=== PATIENT | male | born 1960 | race Caucasian/White ===

== ENCOUNTER 2024-07-18 22:07 | Emergency (ER) | payer OTHER, SELFPAY ==
[2024-07-18 22:10] VITALS: BP 154/110
[2024-07-18 22:38] VITALS: BMI 27.5
[2024-07-18 22:51] LABS: % Basophils 0.3 % (0-2); % Immature Granulocytes 0.3 % (0-0.5); % Lymphocytes 8.4 % (20.5-51.1); % Monocytes 4.5 % (1.7-9.3); % Neutrophils 85.5 % (42.2-75.2); Absolute Eosinophils 0.1 10^3/uL (0-0.7); Absolute Lymphocytes 0.7 10^3/uL (1.2-3.4); Absolute Monocytes 0.4 10^3/uL (0.1-0.6); Absolute Neutrophils 6.6 10^3/uL (1.4-6.5); Hematocrit 44.3 % (39.0-52.0); Hemoglobin 15.8 g/dL (13.0-18.0); Mean Corp Hgb Conc. 35.7 g/dL (33.0-37.0); Mean Corpuscular Hgb 32.6 pg (27.0-31.0); Mean Corpuscular Volume 91.3 fL (80.0-94.0); Mean Platelet Volume 9.2 fL (7.4-10.4); Nucleated Red Blood Cells % 0 % (-); Platelet Count 192 10^3/uL (130-400); Red Blood Cell Count 4.85 10^6/uL (4.70-6.10); Red Cell Dist. Width 12.7 % (11.5-14.5); White Blood Cell Count 7.8 10^3/uL (4.8-10.8)
[2024-07-18 22:53] VITALS: BP 143/99
[2024-07-18 23:07] LABS: Lactic Acid 1.1 mmol/L (0.7-2.0)
[2024-07-18 23:09] LABS: ALT (SGPT) 30 U/L (0-50); AST (SGOT) 30 U/L (17-59); Albumin 4.6 g/dl (3.5-5.0); Alkaline Phosphatase 99 U/L (38-126); Blood Urea Nitrogen 27 mg/dl (9-20); Carbon Dioxide 28 mmol/L (22-30); Chloride 104 mmol/L (98-107); Estimated Creatinine Clearance 82 ml/min; Glucose 121 mg/dl (70-99); Lipase 91 U/L (23-300); Potassium 3.9 mmol/L (3.5-5.1); Sodium 141 mmol/L (135-145); Total Bilirubin 1.2 mg/dl (0.2-1.3); Total Protein 7.1 g/dl (6.3-8.2); eGFR > 60.00
[2024-07-18 23:24] LABS: Troponin I < 0.012 ng/ml
--- NOTE | 2024-07-18 23:49 | ED.GENMED ---
History of Present Illness
General
Chief Complaint: Abdominal Pain
Source: patient
Exam Limitations: none
Time Seen by Provider: 07/18/24 23:31
Nursing documentation reviewed up to this point in time: agreed with
History of Present Illness
History of Present Illness:
This is a 64-year-old male with past medical history of hypertension, GERD, who presents emergency department today with concerns of epigastric abdominal pain and left upper abdominal pain starting this afternoon. Patient reports that when for
started, he thought nothing of it. He has had similar pain past which is gone away on its own. He also has had headaches with this as well as intermittent body aches and nausea. He denies any vomiting. He denies any fevers or chills. He states
that he took Advil for the pain which did not help much. He does not use NSAIDs daily. He denies any hemoptysis, dark tarry stools, rectal bleeding. He denies any coughing, shortness of breath, chest pain or respiratory symptoms. He denies any
radiation of the abdominal pain to the back. He has never had any intra-abdominal surgeries in the past. He called his primary care provider who advised him to report to emergency department to rule out any cardiac etiology to his symptoms.
Patient has no personal history of cardiac disease. He does take lisinopril daily for his blood pressure and states that he is concerned because his blood pressure was elevated today. He denies any headaches
Review of Systems
Review of Systems
All Other Systems: ROS reviewed and negative except as documented in HPI and ROS
Phy Exam
Physical Exam
Physical Exam:
General: Patient is well appearing and in no acute distress; non-toxic
Skin: Warm and dry, no rashes or lesions
Head: Normocephalic, atraumatic
Eyes: Sclera non-icteric. EOMs intact.
Cardiac: Regular rate and rhythm, no murmurs; no tenderness palpation of external chest wall
Peripheral Vascular: No lower extremity swelling or
Pulm: Normal respiratory effort, no wheezes, rales, rhonchi
Abdomen: Mild left upper quadrant abdominal tenderness palpation, no rebound tenderness or guarding. Normoactive bowel sounds
Neuro: CN II-XII intact, no focal neurologic deficits.
Psychiatric: Appropriate mood and affect.
Course
Orders/Labs/Results
Orders:
Orders
07/18/24 22:19
EKG [Electrocardiogram (*1)] Urgent
Reason for Study: Tachycardia
EKG- Treatment ONCE
07/18/24 22:28
EKG [Electrocardiogram (*1)] Urgent
Reason for Study: Tachycardia
EKG- Treatment ONCE
07/18/24 22:43
Complete Blood Count/With Diff Urgent
Comprehensive Metabolic Panel Urgent
Lactic Acid Urgent
Lipase Urgent
Troponin I Urgent
07/19/24
CT Abd/pelvis W Iv Cont Urgent
Reason For Exam: right sided abdominal pain
07/19/24 00:35
0.9% Sodium Chloride 1000 ml [Nss] 1,000 ml IV BOLUS
07/19/24 00:36
Ketorolac [Toradol] 15 mg IV NOW STA
07/19/24 01:16
Electrocardiogram (*1) Urgent
Reason for Study: Abdominal Pain
EKG- Treatment ONCE
07/19/24 01:42
COVID-19 Antigen Urgent
Source: Nasal Swab
Troponin I Urgent
Influenza A+B Rapid Molecular Urgent
TAWNY Source: Nasal Swab
Specimen Description:
Abnormal Lab Results
07/18/24
22:43
MCH 32.6 H pg
(27.0-31.0)
Absolute Neuts (auto) 6.6 H 10^3/uL
(1.4-6.5)
Absolute Lymphs (auto) 0.7 L 10^3/uL
(1.2-3.4)
Neutrophils % 85.5 H %
(42.2-75.2)
Lymphocytes % 8.4 L %
(20.5-51.1)
BUN 27 H mg/dl
(9-20)
Glucose 121 H mg/dl
(70-99)
07/18/24 22:43
07/18/24 22:43
Vital Signs
Initial and Last Documented VS:
Initial Vital Signs
Temp Pulse Resp BP Pulse Ox
98.7 F 107 20 154/110 97
07/18/24 22:10 07/18/24 22:10 07/18/24 22:10 07/18/24 22:10 07/18/24 22:10
Last Documented Vital Signs
Temp Pulse Resp BP Pulse Ox
98.7 F 99 25 148/93 97
07/18/24 22:10 07/19/24 02:17 07/19/24 02:17 07/19/24 02:17 07/19/24 01:45
MDM/Problems Addressed
Differential Diagnosis Includes:
gastritis, appendicitis, GERD, cholecystitis, diverticulitis, appendicitis, ACS, costochondritis
MDM/Problems Addressed:
64-year-old male presents emergency department today with concerns of upper abdominal pain. History as above. The pain does not radiate into the chest. No personal history of cardiac disease. On exam he is well-appearing no acute distress his
vitals are stable. He is hypertensive upon arrival however patient does have a history of high blood pressure and suspect acutely elevated in the setting of pain. Patient given a dose of Toradol for his pain, on reassessment, patient is pain-free.
His CBC and CMP are unremarkable other than for elevated BUN to creatinine ratio in which she was given fluids for. Encouraged oral hydration at home. Troponin x 2 undetectable. EKG shows normal sinus rhythm with no ischemic changes unchanged
from prior. Patient stable for discharge.
Chronic conditions affecting care:
GERD, hypertension, ex-smoker
*Pulse Oximetry
Patient hypoxic: no
*EKG
Interpreted by ED Provider?: Yes
EKG Intrepretation Date: 07/19/24
Interpretation: normal
Comparison EKG: no changes
Heart Rate: 96
Rate: normal
Rhythm: sinus
[place]: normal axis
Interval: normal interval
*Critical Care Note
Total Time (30-74mins, 75-104mins- exclusive of procedures): Not Applicable
Data Reviewed
Review of Other/Old Records Reveals: Records (Reviewed previous ER physician documentation, reviewed history and physical exam from colonoscopy on 09/30, reviewed colonoscopy report from 09/30/2022, there were a few diverticula found and internal
hemorrhoids however otherwise exam was unremarkable with no specimen collection) and Discharge Summary (No discharge summaries in [facility] to review)
Source: patient and records
ED Attending Note
-
Portions of this chart may have been created with voice recognition software.� Occasional wrong word or��sound alike� substitutions may have occurred due to the inherent limitations of voice recognition software.
Discharge Plan
Departure
Patient Disposition: Home (Routine Discharge)
Date of Disposition: 07/19/24
Time of Disposition: 02:20
Patient with high blood pressure during this ER visit?: Yes
Condition: Good
Discharge Problem:
Enteritis
Instructions: Viral gastroenteritis in adults, BLOOD PRESSURE
Referrals:
Riaz Jeff DO [Family Provider] -
Activity Restrictions/Additional Instructions:
Your CT scan showed findings consistent with enteritis. Please continue stay well-hydrated.
Your troponin blood test was undetectable x 2. Your EKG shows no evidence of heart blockage or abnormal heart rhythm.
Please follow-up with your primary provider.
PLEASE RETURN EMERGENCY DEPARTMENT TO DEVELOP ACUTE WORSENING OF YOUR SYMPTOMS, TRACTABLE NAUSEA OR VOMITING, CHEST PAIN, SHORTNESS OF BREATH, PAIN OR JAW OR LEFT ARM, WEAKNESS IN ONE-SIDED BODY. DIZZINESS, LIGHTHEADEDNESS, FEVERS, ANY OTHER SIGNS
OR SYMPTOMS WORRISOME TO YOU.
Interventions
Interventions:
*Risk Screen - Suicide Last Done: 07/18/24 22:10
*General Assessment Last Done: 07/18/24 22:10
*Neglect/Abuse Screening Last Done: 07/18/24 22:10
*ED- Fall Risk Assessment Last Done: 07/18/24 22:42
*ED COVID-19 Vaccine History Last Done: 07/18/24 22:10
*Nursing Disposition Last Done: 07/19/24 02:23
OY-Vjgcnt-Igzwpbilyp Assessment Last Done: 07/18/24 23:33
Discharge Date and Time
Discharge Date/Time: 07/19/24 02:24
Print Language: POLISH
[2024-07-19] VITALS: BP 144/100
[2024-07-19] MEDS: TORADOL 15 MG IV (00:41)
[2024-07-19] MEDS: NSS 1000 IV (00:41)
[2024-07-19 01:00] VITALS: BP 141/96
[2024-07-19 02:13] LABS: COVID-19 Antigen Negative (Negative)
[2024-07-19 02:16] LABS: Troponin I < 0.012 ng/ml
[2024-07-19 02:17] VITALS: BP 148/93
== END 2024-07-19 02:24 | disposition home or self-care (01) ==
LOC: EMR 22:07
PROVIDERS: Physician Assistant; EMERGENCY PHYSICIAN Student in an Organized Health Care Education/Training Program; FAMILY PHYSICIAN Internal Medicine
DX: K52.9 Noninfective gastroenteritis and colitis, unspecified (principal); I10 Essential (primary) hypertension; K21.9 Gastro-esophageal reflux disease without esophagitis; Z79.899 Other long term (current) drug therapy; Z87.891 Personal history of nicotine dependence; Z11.52 Encounter for screening for COVID-19
CPT/HCPCS: 96374; 96361; 99284; 74177; 80053; 83605; 83690; 84484; 85025; 87502; 87811; 93005; Q9967